=== PATIENT | female | born 1955 | race Caucasian/White ===

== ENCOUNTER 2019-10-29 08:20 | Emergency (ER) | payer BC, OTHER ==
[2019-10-29] MEDS ORDERED: predniSONE 20 MG TAB ONE (09:12)
[2019-10-29] MEDS ORDERED: Acyclovir 200 mg Capsule ONE (09:12)
== END 2019-10-29 09:20 | disposition home or self-care (01) ==
LOC: MADERS 08:20
DX: B02.9 Zoster without complications (principal); F17.210 Nicotine dependence, cigarettes, uncomplicated; I20.9 Angina pectoris, unspecified
CPT/HCPCS: 99283; J7512